=== PATIENT | male | born 1960 | race Caucasian/White ===

== ENCOUNTER 2018-10-07 16:17 | Emergency (ER) | payer OTHER ==
[2018-10-07 16:20] VITALS: BP 162/80; TEMP 96.6; BMI 26.6
[2018-10-07] MEDS ORDERED: BENADRYL IM STA (16:24)
[2018-10-07] MEDS ORDERED: PEPCID PO STA (16:25)
--- NOTE | 2018-10-07 18:09 | ED.PDOC ---
General ED Provider: Dr. 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 ON ARRIVAL NO AIR WAY ISSUES NOTED.PT WAS PERSCRIBED MEDROL PACK DUE TO A POISON ELENO EXPOSURE. Time Seen by Physician: 16:20 (NO AIR WAY ISSUES NOTED ) Mode of Arrival: Walk-In Information Source: Patient Exam Limitations: No limitations Primary Care Provider: ANTWON WONG Nursing and Triage Documentation Reviewed and Agree: Yes Does patient meet sepsis criteria?: No System Inflammatory Response Syndrome: Not Applicable Sepsis Protocol: For patient's 13 years and over: Temp is 96.8 and below OR 101 and greater Pulse >90 BPM Resp >20/minute Acutely Altered Mental Status Are patient's symptoms suggestive of a new infection, such as: -Pneumonia -Skin, Soft Tissue -Endocarditis -UTI -Bone, Joint Infection -Implantable Device -Acute Abdominal Infection -Wound Infection -Meningitis -Blood Stream Catheter Infection -Unknown Miscellaneous Complaint Exam - Complex/Multi-System Complaint/Exam Onset/Duration: SHORTLY P.T.A. Symptoms Are: Resolved (AFTER BENADRYL) Initial Severity: Mild Current Severity: None Location of Pain: NO PAIN Pain Radiates to: N/A Character: N/A Aggravating: N/A Alleviating: MEDS Associated Signs and Symptoms: Denies: Decreased responsiveness, Confusion, Agitation, Dizziness, Weakness, Syncope, Headache, Short of air, Cough, Wheezing , Hemoptysis, Chest pain, Palpitations, Edema, Nausea, Vomiting, Diarrhea, Abdominal pain, Back pain, Dysuria, Hematemesis, Melena, Decreased oral intake, Fever, Diaphoresis, Immunocompromised, Anticoagulation Therapy, Recent medication changes, Indwelling medical device engineer, Prior MRSA, Prior VRE, Recent trauma, Remote trauma Review of Systems - Review Of Systems Constitutional: Reports: No symptoms Eyes: Reports: No symptoms Ears, Nose, Mouth, Throat: Reports: Throat pain (DESCRIVED SWELLING) Respiratory: Reports: No symptoms Cardiac: Reports: No symptoms GI: Reports: No symptoms : Reports: No symptoms Musculoskeletal: Reports: No symptoms Skin: Reports: No symptoms Neurological: Reports: No symptoms Endocrine: Reports: No symptoms Hematologic/Lymphatic: Reports: No symptoms All Other Systems: Reviewed and Negative Past Medical History - Past Medical History Previously Healthy: Yes Endocrine: Reports: None Cardiovascular: Reports: Hypertension Respiratory: Reports: None Hematological: Reports: None Gastrointestinal: Reports: None Genitourinary: Reports: None Neuro/Psych: Reports: None Musculoskeletal: Reports: Back Pain Cancer: Reports: None - Surgical History General Surgical History: Reports: None - Family History Family History: Reports: Unknown - Social History Smoking Status: Never smoker Hx Substance Use: No Alcohol Screening: None - Immunizations Tetanus Shot up to Date: No Physical Exam - Physical Exam Appearance: Well-appearing, No pain distress, Well-nourished Eyes: YAZMIN, EOMI, Conjunctiva clear ENT: Ears normal, Nose normal, Oropharynx normal Respiratory: Airway patent, Breath sounds clear, Breath sounds equal, Respirations nonlabored Cardiovascular: RRR, Pulses normal, No rub, No murmur GI/: Soft, Nontender, No masses, Bowel sounds normal, No Organomegaly Musculoskeletal: Normal strength, ROM intact, No edema, No calf tenderness Skin: Warm, Dry, Normal color Neurological: Sensation intact, Motor intact, Reflexes intact, Cranial nerves intact, Alert, Oriented Psychiatric: Affect appropriate, Mood appropriate Critical Care Note - Critical Care Note Total Time (mins): 0 Course - Course Orders, Labs, Meds: Orders Category Date Time Status Diphenhydramine Inj [Benadryl] MEDS 10/07/18 16:24 Discontinued 25 mg IM ONCE STA Famotidine [Pepcid] MEDS 10/07/18 16:25 Discontinued 20 mg PO ONCE STA Medications Discontinued Medications Generic Name Dose Route Start Last Admin Trade Name Jeffry PRN Reason Stop Dose Admin Diphenhydramine HCl 25 mg 10/07/18 16:24 10/07/18 16:33 Benadryl IM 10/07/18 16:25 25 mg ONCE STA Administration Famotidine 20 mg 10/07/18 16:25 10/07/18 16:34 Pepcid PO 10/07/18 16:26 20 mg ONCE STA Administration Vital Signs: Temp Pulse Resp BP Pulse Ox 10/07/18 16:18 96.6 F L 64 18 162/80 H 97 Departure - Departure Time of Disposition: 18:14 Disposition: HOME SELF-CARE Discharge Problem: Allergic state Instructions: General Allergic Reaction (ED) Condition: Good Pt referred to PMD for follow-up: Yes IPMP verified?: No Additional Instructions: Please call your Family Physician as soon as possible to schedule a follow-up appointment.TAKE BENADRYL 25 TO 50MILLIGRAMS 4 TIMES PER DAY FOR 1 DAY. IF YOU HAVE ANY BREATHING ISSUES OR JUST WONT FEELING RIGHT RETURN TO E.R. OR SEE YOUR M.D. PLEASE AVOID PREDNISONE AND ASSOCIATED MEDS Allergies/Adverse Reactions: Allergies No Known Allergies Allergy (Unverified 10/07/18 16:20) Home Medications: Ambulatory Orders Metoprolol Tartrate 50 mg PO d 12/26/15 Disposition Discussed With: Patient
== END 2018-10-07 18:50 | disposition home or self-care (01) ==
LOC: ED 16:17
DX: T78.40XA Allergy, unspecified, initial encounter (principal)
CPT/HCPCS: 96372; 99282